=== PATIENT | female | born 1995 | race Caucasian/White ===

== ENCOUNTER → 2020-10-17 | Outpatient (CLI) | payer OTHER ==
[2020-10-17 14:56] LABS: HCT 39.5 % (34.0-46.0); HGB 13.9 gm/dL (11.4-16.0); MCH 29.4 pg (25.0-35.0); MCHC 35.3 g/dL (31.0-37.0); MCV 83.4 fL (80.0-100.0); Mean Platelet Volume 6.9; Platelet Count 259 k/uL (150-450); RBC 4.73 m/uL (3.80-5.40); RDW 13.6 % (11.5-15.5); WBC 5.4 k/uL (3.8-10.6)
[2020-10-17 15:02] LABS: African American GFR (CKD) >90 (>60 ml/min/1.73 sqM); Glucose 77 mg/dL (74-99); Non-African American GFR(CKD) >90 (>60 ml/min/1.73 sqM)
--- NOTE | 2020-10-17 15:35 | US ---
EXAMINATION TYPE: US OB >= 14 wk fetus DATE OF EXAM: 10/17/2020 COMPARISON: None CLINICAL HISTORY: Confirm dates confirm dates TECHNIQUE: Transabdominal (TA) GESTATIONAL AGE / DATING Physician Established: Not yet established Dates by LMP: LMP unknown Dates by First Scan: No previous this is first scan Dates by Current Scan: (16 weeks/2 days) EDC: 04/01/21 SURVEY IUP: Single PLACENTA: Anterior PREVIA: No Previa SASHA: 10.4 cm Normal CERVICAL LENGTH (transabdominal: norm > 3.0cm): 3.3 cm BIOMETRY PRESENTATION: Vertex LIE: Transverse with head maternal LT BPD: 3.2 cm 16 weeks / 1 days HC: 12.1 cm 16 weeks / 1 days AC: 9.6 cm 15 weeks / 5 days FL: 2.3 cm 16 weeks / 6 days ESTIMATED WEIGHT IN GRAMS: 149 grams ESTIMATED WEIGHT IN LBS/OZ: 0 lbs. 5 oz. WEIGHT PERCENTAGE BASED ON ESTABLISHED HC/AC: 1.27 FL/AC: 24% HEART RATE: 144 bpm RHYTHM: Normal IMPRESSION: Single intrauterine gestation estimated at 16 weeks 2 days gestation based on the current ultrasound measurements. Cardiac activity measures 1 44 bpm.
[2020-10-18 03:48] LABS: Hepatitis B Surface Antigen Non-Reactive (Non-Reactive)
== END | disposition home or self-care (01) ==
LOC: RADUSWWP 13:38
PROVIDERS: ATTEND Obstetrics & Gynecology
DX: Z36.89 Encounter for other specified antenatal screening (principal); Z3A.16 16 weeks gestation of pregnancy
CPT/HCPCS: 76805; 82565; 82947; 85027; 86762; 86780; 86850; 86900; 86901; 87340; 87390